=== PATIENT | male | born 1940 | race Caucasian/White ===

== ENCOUNTER → 2018-11-01 11:22 | Outpatient (CLI) | payer MEDICARE, OTHER, SELFPAY ==
[2018-11-01 11:37] LABS: Bacteria Urine None Seen; RBC Urine None Seen (0-5/HPF)
[2018-11-01 12:47] LABS: Hematocrit 46.5 % (41-53); Hemoglobin 16.1 g/dL (13.5-17.5); Mean Corpuscular HGB Conc 34.5 % (30-36); Mean Corpuscular Hemoglobin 33.4 PG (26-34); Mean Corpuscular Volume 96.7 fL (80-100); Platelet Count 171 X10^3/uL (150-400); Red Blood Cell Count 4.81 X10^6/uL (4.5-5.9); Red Cell Distribution Width 14.1 % (11.6-14.8); White Blood Cell Count 6.7 X10^3/uL (4.5-11.0)
[2018-11-01 12:50] LABS: Appearance Urine UA CLEAR; Bilirubin Urine UA NEGATIVE (NEGATIVE); Color Urine UA YELLOW; Glucose Urine UA NEGATIVE (Negative); Ketones Urine UA NEGATIVE (NEGATIVE); Leukocyte Esterase Urine UA NEGATIVE (NEGATIVE); Nitrite Urine UA NEGATIVE (Negative); Occult Blood Urine UA NEGATIVE (Negative); Protein Urine UA NEGATIVE (Negative); Specific Gravity Urine UA 1.025 (1.000-1.035); Urobilinogen Urine UA 0.2 E.U./dL (0.2)
[2018-11-01 12:57] LABS: Amorphous Sediment Urine 1+; Mucus Urine 1+ (Negative); Squamous Epithelial Cell Urine 0-1 /HPF (0-5/HPF); WBC Urine 0-1/HPF (0-5/HPF)
[2018-11-01 12:58] LABS: Culture Indicated Urine Cult Not Indicated; Sperm Urine FEW
[2018-11-01 13:00] LABS: Hemoglobin A1C% w Est Avg Glu 5.5 % (4.0-6.0)
[2018-11-01 13:14] LABS: BUN Creatinine Ratio 14.2 (6-22); Blood Urea Nitrogen 17 mg/dL (9-20); Calcium 9.2 mg/dL (8.4-10.2); Carbon Dioxide 25 mmol/L (22-32); Chloride 105 mmol/L (98-107); Estimated Glomerular Filt Rate 58.4 mL/min (>60); Glucose 107 mg/dL (80-110); HEMOLYSIS < 15 (0-50); Potassium 3.9 mmol/L (3.4-5.1); Sodium 139 mmol/L (137-145)
[2018-11-01 13:18] LABS: Transferrin 184 mg/dL (206-381)
== END ==
PROVIDERS: Family Provider Internal Medicine; PCP Internal Medicine; Visit Provider Orthopaedic Surgery
DX: E61.1 Iron deficiency (principal); N39.0 Urinary tract infection, site not specified; R73.9 Hyperglycemia, unspecified; Z01.818 Encounter for other preprocedural examination
CPT/HCPCS: 36415; 80048; 81001; 83036; 84466; 85027; 93005

== ENCOUNTER 2019-02-26 08:31 | Inpatient (IN) | payer MEDICARE, OTHER, SELFPAY ==
[2019-02-12 09:52] VITALS: BMI 27.2
[2019-02-26] VITALS (16 sets, daily range): BP systolic 111–164; BP diastolic 56–80; PULSE 57–93; RESP 10–18; TEMP 36.3–36.8; O2SAT 89–98; BMI 27.2
--- NOTE | 2019-02-26 06:00 | DI.RAD.S_ITS ---
PROCEDURE: XR KNEE RT 1TO2V INDICATIONS: Postop right total knee TECHNIQUE: 2 view(s) of the knee acquired. COMPARISON: [facility] [place], RADU, XR KNEE ARTHRITIC SERIES RT, 03/23/2018, 13:29. FINDINGS: Bones: Patient is status post knee joint arthroplasty. Hardware components are in expected positions. Visualized bony structures are intact. Soft tissues: Overlying postoperative changes are noted. IMPRESSION: Right knee prosthesis in anatomic alignment. Dictated by: Bong Ashton M.D. on 02/26/2019 at 17:39 Approved by: Bong Ashton M.D. on 02/26/2019 at 17:40
[2019-02-26] MEDS: PREGABALIN 75 MG CAPSULE PO (09:33)
[2019-02-26] MEDS: CELECOXIB 200 MG CAPSULE PO (09:33)
[2019-02-26] MEDS: ACETAMINOPHEN 325 MG TABLET 975 MG PO ×2 (09:33→20:36)
[2019-02-26] MEDS: LACTATED RINGERS 1,000 ML 42 ML IV (09:45)
--- NOTE | 2019-02-26 10:07 | PM.PREOP ---
Pre-operative Note Interval Note History & Physical reviewed/Exam performed by Physician: Yes Changes to H&P: No
--- NOTE | 2019-02-26 10:22 | P.OP_ITS ---
Operative Date/Time/Diagnoses Date of procedure: 02/26/19 Time of procedure: 12:20 Pre-op diagnosis: Right knee osteoarthritis Post-op diagnosis: same Procedure & Clinicians Procedure: Right total knee replacement Same procedure as scheduled: Yes Indications: The patient has had progressively worsening right knee pain with radiographic changes consistent with arthritis. Non-operative management has failed and the patient has requested total knee replacement. The risks, benefits and alternatives to surgery were discussed with the patient prior to proceeding. Risks discussed included, but were not limited to, failure to relieve pain, stiffness, infection, nerve damage, deep venous thrombosis, pulmonary embolism, stroke, coma, heart attack, permanent paralysis and , as well as the potential need for eventual revision of the prosthetic. Surgeon: Milad Orellana Glass Unloading Equipment Tender: Fadumo Jolly Click Yes if Unassisted: No Anesthesia Type: General, Spinal and Local Operative Notes Findings: Severe osteoarthritis, worst on the lateral side with significant hypoplasia of the lateral femoral condyle. Closure Type: primary Specimen(s): none sent Prosthetic devices, grafts, tissues, transplants, or devices: Implants used in this procedure were manufactured by the [employer] and included the BCS II Journey total knee replacement with a size 7 right cobalt chromium femoral component, a size 7 right non porous tibial base plate, a 9 mm cross-linked polyethylene tibial insert and a 38 mm oval Eduarda II patella. Applied: implant(s) Estimated Blood Loss (mL): 25 Blood products transfused: none Tourniquet time (min): 54 Procedure in detail: The patient was seen in the pre-operative area, where the patient identified the right knee as the operative site and this was marked with my initials. The patient received pre-operative antibiotics, and was taken to the operating room and placed on the operative table in the supine position. After satisfactory anesthesia, a silica mixer operator out was performed. The right leg was encircled with a tourniquet about the proximal thigh, and the leg was prepared from the toes to the tourniquet with ChloroPrep in the usual fashion and draped through sterile drapes. The leg was elevated and exsanguinated with Eschmark bandage and the tourniquet inflated to 250 mmHg pressure. The knee was approached through an approximately 18 cm incision centered over the patella and carried into the knee through a medial parapatellar arthrotomy. The anterior osteophytes and soft tissues were removed. The rotational landmarks of Ferriday's line and the transepicondylar axis were marked on the femur with electrocautery, and intramedullary guide holes for the femur and tibia were created. The distal femoral cut was made in 6 degrees of valgus using the intramedullary guide at the +2 cut setting due to the pre-existing flexion contracture. The proximal tibial cut was then made using the intramedullary guide, taking 9 mm of bone off the less involved side. The extension gap was checked and the rotation of the femoral component confirmed with the gap balancing system. The anterior, posterior and chamfer cuts were then made. The posterior osteophytes and soft tissues were then removed. The posterior capsule was injected with part of a mixture of 60 ml 0.25% Marcaine mixed with 20 ml Exparel and 4 mg of morphine for post-operative pain control. The remainder of this mixture was injected into the capsule and subcutaneous tissues during cement curing. The tibia was prepared with the rotation set by an extra medullary guide. Trial tibial and femoral components were then placed and the intercondylar notch cut through the femoral trial. Range of motion was 0-135 degrees, with good stability throughout the range. The patella was then cut to accommodate the patellar prosthetic. There was no need for a lateral release. The trials were then removed, and the femoral hole plugged with a bone plug. The bone was prepared with pulsatile lavage, and dried with a sponge. Cement was applied and the final prosthetics placed. Excess cement was removed during and after cement curing. After confirming there was no extruded cement posteriorly, the final tibial insert was placed. The knee was copiously irrigated and the tourniquet deflated. Hemostasis was obtained. The capsule was closed with interrupted # 2 polyester suture. The subcutaneous layer was closed with 3-0 Vicryl, and the skin with a running 3-0 V-Lock suture and SteriStrips. An Aquacel Ag dressing was applied and the patient was taken to recovery having tolerated the procedure well. Complications: none Post-operative Condition: stable Disposition: PACU Plan for aftercare: The patient will be maintained on a standard total knee replacement protocol with weight bearing as tolerated. The patient will receive aspirin and sequential compression devices for DVT prophylaxis. The patient will be discharged home when safe for the home environment.
[2019-02-26] MEDS: CEFAZOLIN 1 GM VIAL IV (10:45)
[2019-02-26] MEDS: TRANEXAMIC ACID 1,000 MG VIAL 1000 MG INJ ×2 (11:10→12:16)
--- NOTE | 2019-02-26 11:27 | SUR.OPER ---
Supine on padded OR bed. Pillow under head, arms secured on padded armboards <90 degree abduction. Safety belt across torso. Non-operative leg secured with tape over blanket over lower leg. Operative leg secured in DeMayo/Wiley positioner. Foam padded brace at thigh of operative leg.
[2019-02-26] MEDS: BUPIVACAINE 0.25% W/ EPI 30 ML VIAL 60 ML INJ (11:32)
[2019-02-26] MEDS: BUPIVACAINE LIPOSOME 266 MG/20 ML VIAL INJ (11:32)
[2019-02-26] MEDS: MORPHINE 4 MG/ML INJ INJ (11:33)
--- NOTE | 2019-02-26 13:08 | SUR.PHASEI ---
Report to Rachana
--- NOTE | 2019-02-26 13:11 | SUR.PHASEI ---
assumed care from Kodak Galo RN. Responds to voice, resp unlabored, denies pain, taking ice chips.
--- NOTE | 2019-02-26 13:24 | SUR.PHASEI ---
waiting for staff nurse to return call for report. Pt. verdugo.
--- NOTE | 2019-02-26 13:36 | SUR.PHASEI ---
1330 report called to floor, pt arouses easily. CMS wnl. denies pain/nausea
--- NOTE | 2019-02-26 13:50 | SUR.PHASEI ---
1343 To room 210, bed down and locked, call light within reach. VSS. clothing bag and cane to the room, present, report updated. No questions/concerns. Stable.
[2019-02-26] MEDS: LACTATED RINGERS 1,000 ML 125 ML IV (15:16)
--- NOTE | 2019-02-26 16:45 | PT.IIE ---
Current Diagnoses Unilateral primary osteoarthritis, right knee (02/26/19) Surgery Performed Operation Date: 02/26/19 10:45 Actual Procedures p Total Knee Arthroplasty(Right) - Milad Orellana MD Surgical History (Last Updated 02/12/19 @ 10:51 by Ketty Vera RN) H/O hernia repair (Acute ~2014) History of arthroplasty of left knee (Acute ~2011) History of arthroplasty of left shoulder (Acute 05/30/17) History of arthroplasty of right shoulder (Acute ~1999) History of bilateral carpal tunnel release (Acute) History of left-sided carotid endarterectomy (Acute 08/16/16) Hx of foot surgery (Acute) Hx of laminectomy (Acute ~1996) Hx of spinal fusion (Acute ~1963) Medical History (Last Updated 02/18/19 @ 14:44 by Ketty Vera RN) Arthritis (Acute) CKD (chronic kidney disease) (Acute) CVA (cerebral vascular accident) (Acute 08/10/16) Glaucoma (Acute) Herpes zoster (Acute) HLD (hyperlipidemia) (Acute) ONEIDA (hard of hearing) (Acute) HTN (hypertension) (Acute) Osteoarthritis (Acute) TIA (transient ischemic attack) (Acute ~12/2018) Physical Therapy Inpatient Evaluation/Re-Eval M1 PT/OT-IP Prior Functional Status Start: 02/26/19 14:03 Freq: NEEDED Status: Active Protocol: Document 02/26/19 16:27 AW (Rec: 02/26/19 16:45 AW [id number]) Medical Review Prior Functional Status Medical History Reviewed Yes Diet/Fluid Consistency Regular Communication Able to make needs known Mobility and Gait Pt used SPC to ambulate household distances and FWW up to 8-10 blocks at a time. Activities of Daily Living and IADL's Independent except helps to don socks Social History Household Members spouse Living Arrangements House Number of Floors (Floors) One Floor Number of Stairs To Enter/Railing? 2 COLT with no railing Home Environment High Toilet,Walk in Shower Home Equipment Front Wheel Walker,Four Wheel Walker,Straight Cane,Grab Bars In Shower Employment Status Retired M2 PT-IP Current Condition Start: 02/26/19 14:03 Freq: NEEDED Status: Active Protocol: Document 02/26/19 16:27 AW (Rec: 02/26/19 16:45 AW [id number]) Physical Therapy Current Condition Current Condition Evaluation Date 02/26/19 Treatment Diagnosis s/p R TKA, impaired balance, transfers, gait Weight Bearing Status Weight Bearing Status Weight Bear as Tolerated M3 PT-IP Subjective Start: 02/26/19 14:03 Freq: NEEDED Status: Active Protocol: Document 02/26/19 16:27 AW (Rec: 02/26/19 16:45 AW [id number]) Subjective Physical Therapy Visit Type Type Initial Evaluation Visit Start Time 15:45 Visit Stop Time 16:26 Total Visit Minutes 41 Number of INSPECTION MANAGER Visits 0 Physical Therapy Visit Comments Patient Comments Pt visiting with but willing to participate with PT Patient Goals Pt hopes to return home with spouse support at discharge Therapy Pain Assessment Pain When Pain Assessed During Mobility Pain Present Pain Present Denied Pain M4 PT-IP Mobility and Gait Start: 02/26/19 14:03 Freq: NEEDED Status: Active Protocol: Document 02/26/19 16:27 AW (Rec: 02/26/19 16:45 AW [id number]) PT-Bed Mobility Assessment Supine to Sit Supine to Sit Standby Assistance Sit to Supine Sit to Supine Standby Assistance Scooting Scooting to Edge of Bed Contact Guard Assistance PT-Transfer Assessment Sit to and From Stand Sit to and from Stand Minimal Assistance Equipment Transfer Assistive Device Gait Belt,Front Wheeled Walker Orthotic/Prosthetic Devices or Brace: No Transfers Transfer Destination Bed Transfer Technique pt ambulated with FWW Transfer Ability Level of Assist Minimal Assistance Comments Mobility Comments Pt requiring min assist and verbal cues for safe use of FWW to complete sit <> stand transfer. Gait Assessment Gait Gait Assistance Required: Contact Guard Assist Distance (Feet) 25 Able to Maintain Weight Bearing Status Yes During Gait Assistive Devices Assistive Device Gait Belt,Front Wheeled Walker Orthotic/Prosthetic Devices or Brace: No Gait Deviations General Gait Pattern Antalgic,Decreased Stride Length,Decreased Feet Clearance,Flexed Trunk Factors Limiting Gait Function Factors Limiting Gait Function Decreased Activity Tolerance, Decreased Strength,Poor Balance,Poor Safety Awareness Comments Gait Comments Pt required CGA for ambulation with FWW and frequent verbal cues to maintain safe distance from trunk to walker frame. Pt tends to lean far forward with arms outstretched. Pt educated on proper positioning for maximum safety and stability. PT-Balance Assessment Sitting Balance and Reactions Static Sitting Balance Ability Good Dynamic Sitting Balance Ability Good Standing Balance and Reactions Static Standing Balance Ability Fair Dynamic Standing Balance Ability Fair Device Used FWW Comments Other Balance Tests/Deviations/Treatment On two attempts to stand, pt : kept weight posteriorly with tendency for retropulsion. Once moving, pt was unsteady on feet, requiring CGA but was able to distribute/shift weight more appropriately. M5 PT-IP Objective Assessments Start: 02/26/19 14:03 Freq: NEEDED Status: Active Protocol: Document 02/26/19 16:27 AW (Rec: 02/26/19 16:45 AW [id number]) Orientation Orientation/Cognition Level of Alertness Confusional State Orientation Name,Place,Situation Language Function Ability Hard of Hearing Safety Awareness Decreased Safety Awareness Memory Description Short Term Impaired Comments Pt disoriented to month and year. Gross Range of Motion Upper Extremity ROM Assessment Within Functional Limits Impairments History of bilateral TSA Lower Extremity ROM Assessment Right Impaired Strength Upper Extremity Strength Assessment Within Functional Limits Lower Extremity Strength Assessment Right Impaired Coordination Assessment Gross Coordination Gross Coordination WNL Sensation Assessment Sensation Gross Sensation WNL Muscle Tone Muscle Tone WNL Yes M6 PT-IP Treatment Start: 02/26/19 14:03 Freq: NEEDED Status: Active Protocol: Document 02/26/19 16:27 AW (Rec: 02/26/19 16:45 AW [id number]) Physical Therapy Treatment Exercises Exercises Ankle Pumps,Quad Sets,Heel Slides,Passive Knee Extension Hang Education Education Provided Precautions,Weight Bearing Status,Post-Op Packet,Safety M7 PT-IP Assessment and Plan Start: 02/26/19 14:03 Freq: NEEDED Status: Active Protocol: Document 02/26/19 16:27 AW (Rec: 02/26/19 16:45 AW [id number]) PT Summary Assessment and Plan Potential Rehabilitation Potential Good Status of Condition at Evaluation Evolving Summary Impairments ROM,Strength,Balance,Cognition ,Bed Mobility,Transfers,Gait, Activity Tolerance Assessment Summary Pt is an 78 yo man with history of L TKA, seen for PT eval on POD0 following R TKA. After L TKA, pt discharged to SNF rehab for what he and his describe as a 10-day stay . PLOF: Pt was modified independent for all mobility, using a SPC for household distances and FWW for community distances up to 8-10 blocks. CLOF: Pt required min assist for transfers, frequent orientation to task, and CGA for ambulation with FWW due to unsteadiness and pt report of weakness. At this time, in the context of the patient's level of debility from prior level of function, he would likely benefit from SNF rehab before anticipated safe return to home. Will continue to assess Goals Bed Mobility Goal Independent Transfer Goal Standby Assistance Gait Goal Standby Assistance Gait Distance 150 feet Other Goals up/down 2 stairs with least restrictive assistive device/ no railing. Days to Meet Goals 10 Frequency of Treatment Frequency Of Treatment Twice a Day Treatment Plan Physical Therapy Treatment Plan Bed Mobility Training,Transfer Training,Gait Training, Therapeutic Exercise,Balance Retraining,Post Op Education, Discharge Planning,Hot or Cold Pack,Neuromuscular Re-ed, Coordination Retraining,Manual Therapy Other Recommendations and Next Treatment Progress gait distance, trial Focus stairs, re-assess for discharge disposition Recommendations To Nursing Amount of Assist Needed 1 Person Assist Discharge Recommendations PT Discharge Recommendations SNF Rehab Other Discharge Recommendations SNF rehab vs home with assist and outpatient PT Equipment Needed for Home Before shower chair Discharge
[2019-02-26] MEDS: ROSUVASTATIN 10 MG TABLET 40 MG PO (20:36)
[2019-02-26] MEDS: DOCUSATE 100 MG CAPSULE PO (20:36)
[2019-02-26] MEDS: LOSARTAN 50 MG TABLET 100 MG PO (20:36)
[2019-02-26] MEDS: PANTOPRAZOLE 20 MG TABLET PO (20:36)
[2019-02-26] MEDS: LATANOPROST 0.005% OPHTH 2.5 ML 1 DROPS EYE-BOTH (20:37)
[2019-02-26] MEDS: ONDANSETRON 4 MG/2 ML INJ IV (21:16)
[2019-02-27] VITALS (9 sets, daily range): BP systolic 118–147; BP diastolic 65–75; PULSE 68–80; RESP 14–20; TEMP 36.6–37.3; O2SAT 88–99
--- NOTE | 2019-02-27 02:53 | PC.NURSE ---
Supervisor Color Making Note: 0015: Pt resting in bed. Vital signs stable. IV in place in lt forearm with LR infusing at 125cc/hr. Dressing to rt knee cdi with evan wrap intact over dressing. Pt denies pain at this time.
[2019-02-27] MEDS: LACTATED RINGERS 1,000 ML 125 ML IV (03:39)
[2019-02-27 06:48] LABS: Hemoglobin 12.3 g/dL (13.5-17.5)
--- NOTE | 2019-02-27 07:41 | PM.PNPO.1 ---
Subjective Subjective Date Patient Seen: 02/27/19 Time Patient Seen: 07:41 Interval history: Hospital day 2, postop day 1 following right total knee arthroplasty by Dr. Orellana. Patient states he did not get much sleep last night. Having some knee pain but only using Tylenol. He needed further assist with physical therapy yesterday. Also needed a lot of cuing. PT was suggesting possible SNF prior to going home. In talking with the patient this morning he was asking if his surgery was going to be later today. I informed him that he had surgery yesterday. Exam Vital Signs (past 8 hours): - 02/27/19 03:19 Temperature 98.5 F Pulse Rate 69 Respiratory Rate 17 Blood Pressure 129/75 Pulse Oximetry 92 Oxygen Delivery Method Room Air Oxygen Flow Rate 0 Narrative Exam Narrative: Alert, responsive in no acute distress lying in bed. Legs. Bob wrap an Aquacel dressing to right knee is dry without drainage or inflammation. Mild swelling. No calf tenderness. Pulses symmetrical. Patient able to move his knee minimally. Objective Labs Result Diagrams: 02/27/19 06:16 Labs: Laboratory Results - last 24 hr 02/27/19 06:16 Hgb 12.3 L Hct 37.0 L Assessment & Plan Post-op Postoperative Procedures: Procedures Operation Date: 02/26/19 10:45 Actual Procedures Side Surgeon p Total Knee Arthroplasty Right Milad Orellana MD Plan: Will have patient stay today to work with PT more and make sure he is stable for discharge home rather than needing to go to SNF. Will re-evaluate tomorrow morning for possible discharge home.
[2019-02-27] MEDS: TIMOLOL 0.25% OPHTH 1 DROPS EYE-BOTH (08:44)
[2019-02-27] MEDS: ASPIRIN EC 81 MG TABLET PO (08:45)
[2019-02-27] MEDS: ACETAMINOPHEN 325 MG TABLET 975 MG PO ×3 (08:45→20:20)
[2019-02-27] MEDS: CLOPIDOGREL 75 MG TABLET PO (08:45)
[2019-02-27] MEDS: DOCUSATE 100 MG CAPSULE PO ×2 (08:45→20:21)
[2019-02-27] MEDS: MELOXICAM 7.5 MG TABLET 15 MG PO (09:00)
--- NOTE | 2019-02-27 10:25 | PT.IPTN ---
Current Diagnoses Unilateral primary osteoarthritis, right knee (02/26/19) Surgery Performed Operation Date: 02/26/19 10:45 Actual Procedures p Total Knee Arthroplasty(Right) - Milad Orellana MD Physical Therapy Treatment Note M2 PT-IP Current Condition Start: 02/26/19 14:03 Freq: NEEDED Status: Active Protocol: Document 02/26/19 16:27 AW (Rec: 02/26/19 16:45 AW [id number]) Physical Therapy Current Condition Current Condition Evaluation Date 02/26/19 Treatment Diagnosis s/p R TKA, impaired balance, transfers, gait Weight Bearing Status Weight Bearing Status Weight Bear as Tolerated M3 PT-IP Subjective Start: 02/26/19 14:03 Freq: NEEDED Status: Active Protocol: Document 02/27/19 10:25 GGD (Rec: 02/27/19 12:12 GGD [id number]) Subjective Physical Therapy Visit Type Type Treatment Note Visit Start Time 10:00 Visit Stop Time 10:25 Total Visit Minutes 25 Number of DOCK BUILDER Visits 1 Physical Therapy Visit Comments Patient Comments Pt willing to work with therapy. Therapy Pain Assessment Pain When Pain Assessed During Mobility Pain Present Pain Present Denied Pain M4 PT-IP Mobility and Gait Start: 02/26/19 14:03 Freq: NEEDED Status: Active Protocol: Document 02/27/19 10:25 GGD (Rec: 02/27/19 12:12 GGD [id number]) PT-Bed Mobility Assessment Supine to Sit Supine to Sit Standby Assistance Sit to Supine Sit to Supine Standby Assistance Scooting Scooting to Edge of Bed Contact Guard Assistance PT-Transfer Assessment Sit to and From Stand Sit to and from Stand Minimal Assistance Equipment Transfer Assistive Device Gait Belt,Front Wheeled Walker Orthotic/Prosthetic Devices or Brace: No Transfers Transfer Destination Bed Transfer Ability Level of Assist Minimal Assistance Comments Mobility Comments PT had LOB backwards with sit to stand. Gait Assessment Gait Gait Assistance Required: Minimum Assistance Distance (Feet) 25 Able to Maintain Weight Bearing Status Yes During Gait Assistive Devices Assistive Device Gait Belt,Front Wheeled Walker Orthotic/Prosthetic Devices or Brace: No Gait Deviations General Gait Pattern Antalgic,Decreased Stride Length,Decreased Feet Clearance,Flexed Trunk,Lateral Trunk Lean Factors Limiting Gait Function Factors Limiting Gait Function Decreased Activity Tolerance, Decreased Strength,Difficulty Following Directions,Limited Range of Motion,Pain,Poor Balance,Poor Safety Awareness Comments Gait Comments Pt needed min A for gait and FWW management. He had LOB and unsteadiness. M5 PT-IP Objective Assessments Start: 02/26/19 14:03 Freq: NEEDED Status: Active Protocol: Document 02/26/19 16:27 AW (Rec: 02/26/19 16:45 AW [id number]) Orientation Orientation/Cognition Level of Alertness Confusional State Orientation Name,Place,Situation Language Function Ability Hard of Hearing Safety Awareness Decreased Safety Awareness Memory Description Short Term Impaired Comments Pt disoriented to month and year. Gross Range of Motion Upper Extremity ROM Assessment Within Functional Limits Impairments History of bilateral TSA Lower Extremity ROM Assessment Right Impaired Strength Upper Extremity Strength Assessment Within Functional Limits Lower Extremity Strength Assessment Right Impaired Coordination Assessment Gross Coordination Gross Coordination WNL Sensation Assessment Sensation Gross Sensation WNL Muscle Tone Muscle Tone WNL Yes M6 PT-IP Treatment Start: 02/26/19 14:03 Freq: NEEDED Status: Active Protocol: Document 02/27/19 10:25 GGD (Rec: 02/27/19 12:12 GGD [id number]) Physical Therapy Treatment Exercises Exercises Ankle Pumps,Quad Sets,Heel Slides,Short Arc Quads,Seated Knee Flexion/Extension M7 PT-IP Assessment and Plan Start: 02/26/19 14:03 Freq: NEEDED Status: Active Protocol: Document 02/27/19 10:25 GGD (Rec: 02/27/19 12:12 GGD [id number]) PT Summary Assessment and Plan Summary Assessment Summary Pt progressing with bed mobility. He had LOB with sit to stand. He was unsteady with gait need min A for LOB. He is a high fall risk. He would benefit from SNF to improve gait and balance before return home. Frequency of Treatment Frequency Of Treatment Twice a Day Treatment Plan Other Recommendations and Next Treatment Progress gait distance, trial Focus stairs, re-assess for discharge disposition Recommendations To Nursing Amount of Assist Needed 1 Person Assist Discharge Recommendations PT Discharge Recommendations SNF Rehab
[2019-02-27] MEDS: OXYCODONE IR 5 MG TABLET PO ×2 (11:08→20:22)
--- NOTE | 2019-02-27 11:10 | CM.DANOTE ---
Addendum entered by MILY Lozano 02/27/19 14:09: ADD: Return call from [facility] stating they can accept the pt at discharge. BF Original Note: Patient is an 78 year old male who was admitted on 02/26/19 for RTKA. Pt has [employer] and [employer] [place] for insurance and his PCP is Dr. Vipul Bonilla. EMR was reviewed. Per Ortho MD, pt tolerated procedure well and waiting for further PT. Per PT, currently recommending SNF prior to safe return home. SW met bedside with pt and spouse and explained role and spouse confirms that pt seems to have some increased confusion today. Pt resides at home in [facility] with his spouse and they have local supportive family. Pt has a hx of SNF after previous knee surgery 8 years ago and they went to [facility] as they lived near [place]. Pt and spouse both agree that SNF needed at this time before safe return home. SW provided the SNF Choice List to review and spouse preference is either [facility] or [facility] due to location to their home. SW discussed Medicare coverage and 3 night qualifying stay and spouse appreciative of the information. SW called [facility] and [facility] admissions with new referral and faxed clinicals to both to review. Spouse states she plans to likely tour both facilities this evening to determine if she has a preference. PASRR completed in anticipation of SNF. Plan: SW to follow closely for [facility] and [facility] review to determine if they can accept at d/c and if spouse has a preference between the two facilities. MILY Lozano Discharge Planning/Care Management CM Discharge Assessment Start: 02/27/19 11:07 Freq: Status: Active Protocol: Document 02/27/19 11:08 (Rec: 02/27/19 11:10 [id number]) Discharge Planning Assessment Assigned Worship Pastor MILY Obando DPOA/Assigned Designee Name spouse Roopa Contact Information [phone] Advance Directives? No: Declines further information History Provided By Patient,Family Member,Medical Record Has Patient been admitted in last 30 No days? Prior Living Arrangements House Household Members spouse Independent with ADL's Yes: mostly Is patient alert and oriented? No: confused today Needs Assistance With Managing Medications,Home Chores / Shopping Caregiver for Another No Patient/Family Preference Snf Facility Barriers to Discharge No Discharge Plan Snf Facility Transportation Arrangement Likely SNF will provide transport Referrals Initiated Snf If patient plan is SNF: Has PASSR been Yes completed? Medicare Choice List Provided Yes SNF/HH Preference [facility] Has Agency SNF been contacted Yes Whiteboard Updated in Patient Room with Yes name and ext. # of Worship Pastor Review Status In Process Please Provide Date Initial DC 02/27/19 Assessment Was Performed Next Review Type Continued Stay Review Pre-Anesthesia Assessment Start: 02/12/19 09:52 Freq: Status: Complete Protocol: Document 02/12/19 09:52 CAB (Rec: 02/12/19 10:58 CAB [id number]) Pre-Anesthesia Assessment Patient Also Known As (KRYSTA Palomo Patient Information Reviewed Via Phone Assessment Assessment Completed With Spouse Comment Patient gave verbal approval to speak with spouse for PAC Diagnostic Results BMP/CMP,CBC Comment EKG @ [facility] 11/01/18 Outside labs 02/01/19 scanned to record Primary Care Provider Robin Bonilla Seen Specialist in Last 12 Months Yes Specialist Seen Orthopedist Comment PCP pre-op clearance 02/11/19 scanned to record Primary Language Polish Ammunition Storage Superintendent Required No Height 167.64 cm Weight 76.657 kg Body Mass Index (BMI) 27.2 Hearing Ability Hard of Hearing Visual Assist Glasses Dentition Type Teeth, Natural Present Barriers to Learning Auditory Other Aids No Hx Anesthesia Reactions No: Remote hx of PONV w/back surgery in 60's Hx Family Anesthesia Reaction No Hx Malignant Hyperthermia No Hx Blood Transfusions Yes: 1970 r/t back surgery Hx Blood Transfusion Reaction No Anesthesia Review Requested No alcohol intake current alcohol intake frequency holidays/special occasions only Smoking Status Never smoker Substance Use Type does not use Pain Present Pain Reported Musculoskeletal Symptoms Abnormal Gait,Difficulty Walking,Joint Pain History of Falling (Recent or History of Yes ) Patient is completely paralyzed or No completely immobile Prosthesis or Orthotic Device Cane Mental Status Oriented to own ability Is patient on oxygen? No Does patient have DOLL/SOB No Hx Sleep Apnea No Currently Taking a Beta Dameon No Can You Climb a Flight of Stairs Without Yes SOB Hx Chest Pain No Hx SOB No Hx Syncope or Dizziness No Anti-Coagulant Therapy Yes: ASA, Plavix-advised to hold 7 days per PCP Has a Cake Former No Cardiac Testing No Hx Pacemaker/ICD No Pacemaker Rep Required? No Cardiac Clearance Received Not Applicable Diet Type At Home Regular dysphagia No Bladder Pattern Nocturia Urinary Catheter Present No Hx Urinary Self Catheterization No Diabetes No: Pre-diabetes by lab HgbA1C 6.4 Date 02/01/19 Comment A1c up from 5.5 on 11/01/18 Hx Drug Resistant Organism No Presence of External or Internal Medical Yes: Bilat shoulder, left knee Devices prosthesis, lt endarterectomy /shunt Have you traveled outside the [facility] in the last 30 days? Marital Status Lives With spouse Prior Living Arrangements House Number of Floors (Floors) One Floor Support System Spouse Does the Patient Have Assistance After Yes Surgery Patient Discharge Plan Description Return Home Comment Pt not advised on length of stay per surgeon Feels Safe in Current Environment Yes Been Physically Hurt or Threatened By a No Person in Current Environment Do you have thoughts of harming yourself None or others? Are you currently considering suicide? No Do you have a plan to hurt yourself or No Plan others? Do You Have Any Spiritual Beliefs That No May Affect Your HC Choices? Do You Have Any Cultural Practices That No May Affect Your HC Choices? Comment Catholic Who Can We Speak to About Patient's Care Family, friends Identifying Code for Release of Patient Declines to issue Information Health Care Proxy/Next of Kin Rula () Health Care Proxy Emergency Contact Name Rula () Emergency Contact Advance Directives? No: Declines further information PAC Instructions Durable medical equipment, Medications to take/avoid, Nasal antibiotic,No ETOH/ petroleum product on skin DOS, NPO,Post-op transportation,Pre -surgical wash,Sturdy shoes/ comfortable clothes,Do not bring valuables and remove jewelry
--- NOTE | 2019-02-27 15:20 | PT.IPTN ---
Current Diagnoses Unilateral primary osteoarthritis, right knee (02/26/19) Surgery Performed Operation Date: 02/26/19 10:45 Actual Procedures p Total Knee Arthroplasty(Right) - Milad Orellana MD Physical Therapy Treatment Note M2 PT-IP Current Condition Start: 02/26/19 14:03 Freq: NEEDED Status: Active Protocol: Document 02/26/19 16:27 AW (Rec: 02/26/19 16:45 AW [id number]) Physical Therapy Current Condition Current Condition Evaluation Date 02/26/19 Treatment Diagnosis s/p R TKA, impaired balance, transfers, gait Weight Bearing Status Weight Bearing Status Weight Bear as Tolerated M3 PT-IP Subjective Start: 02/26/19 14:03 Freq: NEEDED Status: Active Protocol: Document 02/27/19 15:20 GGD (Rec: 02/27/19 16:14 GGD [id number]) Subjective Physical Therapy Visit Type Type Treatment Note Visit Start Time 14:50 Visit Stop Time 15:20 Total Visit Minutes 30 Number of NUMERICAL CONTROL LATHE OPERATOR Visits 2 Physical Therapy Visit Comments Patient Comments Pt willing to work with therpay. Therapy Pain Assessment Pain When Pain Assessed During Mobility Pain Present Pain Present Denied Pain M4 PT-IP Mobility and Gait Start: 02/26/19 14:03 Freq: NEEDED Status: Active Protocol: Document 02/27/19 15:20 GGD (Rec: 02/27/19 16:14 GGD [id number]) PT-Bed Mobility Assessment Supine to Sit Supine to Sit Standby Assistance Sit to Supine Sit to Supine Standby Assistance Scooting Scooting to Edge of Bed Contact Guard Assistance PT-Transfer Assessment Sit to and From Stand Sit to and from Stand Minimal Assistance Equipment Transfer Assistive Device Gait Belt,Front Wheeled Walker Orthotic/Prosthetic Devices or Brace: No Transfers Transfer Destination Bed Transfer Technique pt ambulated with FWW Transfer Ability Level of Assist Minimal Assistance Gait Assessment Gait Gait Assistance Required: Minimum Assistance,Moderate Assistance,1 Person Assist Distance (Feet) 5 Able to Maintain Weight Bearing Status Yes During Gait Assistive Devices Assistive Device Gait Belt,Front Wheeled Walker Orthotic/Prosthetic Devices or Brace: No Gait Deviations General Gait Pattern Antalgic,Decreased Stride Length,Decreased Feet Clearance,Flexed Trunk,Lateral Trunk Lean Factors Limiting Gait Function Factors Limiting Gait Function Decreased Activity Tolerance, Decreased Strength,Difficulty Following Directions,Limited Range of Motion,Pain,Poor Balance,Poor Safety Awareness Comments Gait Comments Pt had increase in pain with weight bearing. M5 PT-IP Objective Assessments Start: 02/26/19 14:03 Freq: NEEDED Status: Active Protocol: Document 02/26/19 16:27 AW (Rec: 02/26/19 16:45 AW [id number]) Orientation Orientation/Cognition Level of Alertness Confusional State Orientation Name,Place,Situation Language Function Ability Hard of Hearing Safety Awareness Decreased Safety Awareness Memory Description Short Term Impaired Comments Pt disoriented to month and year. Gross Range of Motion Upper Extremity ROM Assessment Within Functional Limits Impairments History of bilateral TSA Lower Extremity ROM Assessment Right Impaired Strength Upper Extremity Strength Assessment Within Functional Limits Lower Extremity Strength Assessment Right Impaired Coordination Assessment Gross Coordination Gross Coordination WNL Sensation Assessment Sensation Gross Sensation WNL Muscle Tone Muscle Tone WNL Yes M6 PT-IP Treatment Start: 02/26/19 14:03 Freq: NEEDED Status: Active Protocol: Document 02/27/19 15:20 GGD (Rec: 02/27/19 16:14 GGD [id number]) Physical Therapy Treatment Exercises Exercises Ankle Pumps,Quad Sets,Heel Slides,Short Arc Quads,Seated Knee Flexion/Extension M7 PT-IP Assessment and Plan Start: 02/26/19 14:03 Freq: NEEDED Status: Active Protocol: Document 02/27/19 15:20 GGD (Rec: 02/27/19 16:14 GGD [id number]) PT Summary Assessment and Plan Summary Assessment Summary Pt unalbe to progress gait, due to c/o pain. He had posterior lean in standing. He needed increase in assistance with gait due to increase in pain and LOB. Frequency of Treatment Frequency Of Treatment Twice a Day Treatment Plan Physical Therapy Treatment Plan Bed Mobility Training,Transfer Training,Gait Training, Therapeutic Exercise,Balance Retraining,Post Op Education, Discharge Planning,Hot or Cold Pack,Neuromuscular Re-ed, Coordination Retraining,Manual Therapy Other Recommendations and Next Treatment Progress gait distance, trial Focus stairs, re-assess for discharge disposition Recommendations To Nursing Amount of Assist Needed 1 Person Assist,2 Person Assist Discharge Recommendations PT Discharge Recommendations SNF Rehab
[2019-02-27] MEDS: LOSARTAN 50 MG TABLET 100 MG PO (20:20)
[2019-02-27] MEDS: PANTOPRAZOLE 20 MG TABLET PO (20:21)
[2019-02-27] MEDS: ROSUVASTATIN 10 MG TABLET 40 MG PO (20:21)
[2019-02-27] MEDS: LATANOPROST 0.005% OPHTH 2.5 ML 1 DROPS EYE-BOTH (20:22)
[2019-02-28] VITALS (9 sets, daily range): BP systolic 153–178; BP diastolic 77–98; PULSE 71–80; RESP 19–22; TEMP 36.3–37.3; O2SAT 93–98
[2019-02-28] MEDS: OXYCODONE IR 5 MG TABLET PO ×3 (01:05→12:45)
--- NOTE | 2019-02-28 01:28 | PC.NURSE ---
Addendum entered by Hellen Stoll R.N. 02/28/19 04:19: Found in bed undressed except for pull up and legs toward side of bed. When asked if he needed something states I was trying to get up. Pull up soaked but assisted to use urinal and voided an additional 100cc urine. Much facial grimacing when moving right leg in bed and states pain is 5/10 so medicated with Oxycodone. Original Note: Patient oriented to self, birthdate and that he is in the hospital but otherwise not able to answer orientation questions. Believes he is in the hospital for a CVA. Responses are delayed but clear. Is ALUTIIQ and does not have hearing aid. Breath sounds diminished at bases. Oxygen at 2L/min with sat of 93%. HRR with BP of 155/77 but has been trending higher. Denies nausea. BT hypoactive. Has been voiding per urinal but noted strong urine odor during exam and found bedding to be damp; unsure if he was incontinent or if urinal was spilled. Is able to move self in bed. Out of bed with walker and 1-2 assist. Seems to bear weight well but takes small shuffling steps. States pain is currently 5/10 so medicated with Oxycodone as noted to be grimacing/wincing with movements. Ice pack applied to knee. Aquacel dressing is CDI. Wearing bilateral SCD's. CMS intact. Fall risk score is high and bed alarm is activated.
--- NOTE | 2019-02-28 06:54 | P.PN_ITS ---
Subjective Subjective Date Patient Seen: 02/28/19 Time Patient Seen: 06:54 Interval history: The patient is pleasant and cooperative but confused. He is disoriented as to place and time. Exam Vital Signs (past 8 hours): - 02/28/19 00:50 02/28/19 04:31 Temperature 99.1 F 98.4 F Pulse Rate 77 80 Respiratory Rate 19 19 Blood Pressure 155/77 H 178/88 H Pulse Oximetry 93 95 Oxygen Delivery Method Nasal Cannula Oxygen Flow Rate 2 Narrative Exam Narrative: Facies are symmetric. He is moving all 4 extremities. Right knee wound is dressed with no drainage on the bandage. Calf is soft. Light touch and motion are intact in the right lower extremity. Objective Labs Result Diagrams: 02/27/19 06:16 Assessment & Plan Post-op Postoperative Procedures: Procedures Operation Date: 02/26/19 10:45 Actual Procedures Side Surgeon p Total Knee Arthroplasty Right Milad Orellana MD Postoperative day: 2 Postoperative status: anemia and other (Postoperative delirium) Postoperative status narrative: The patient is 2 days status post right total knee replacement. He has a mild post hemorrhagic anemia as anticipated. He has significant confusion and delirium. This has limited his progress with physical therapy. Postoperative plan: routine post-op care, ambulate, discharge (Will arrange for discharge to correction likely tomorrow.) and other (Medications have been reviewed, the higher dose of oxycodone has been discontinued due to the delirium.) Postoperative plan narrative: We will continue supportive care. We will continue attempts at physical therapy. I have canceled the higher dose of oxycodone due to his delirium. We will arrange for correction transfer nya dylan tomorrow. Time Spent With Patient Time with patient: less than 15 minutes
[2019-02-28] MEDS: CLOPIDOGREL 75 MG TABLET PO (08:42)
[2019-02-28] MEDS: ASPIRIN EC 81 MG TABLET PO (08:42)
[2019-02-28] MEDS: TIMOLOL 0.25% OPHTH 1 DROPS EYE-BOTH (08:42)
[2019-02-28] MEDS: DOCUSATE 100 MG CAPSULE PO ×2 (08:42→20:51)
[2019-02-28] MEDS: ACETAMINOPHEN 325 MG TABLET 975 MG PO ×3 (08:42→20:51)
[2019-02-28] MEDS: SODIUM CHLORIDE 0.9% FLUSH 10 ML IV ×2 (08:43→20:53)
--- NOTE | 2019-02-28 10:25 | PT.IPTN ---
Current Diagnoses Unilateral primary osteoarthritis, right knee (02/26/19) Surgery Performed Operation Date: 02/26/19 10:45 Actual Procedures p Total Knee Arthroplasty(Right) - Milad Orellana MD Physical Therapy Treatment Note M2 PT-IP Current Condition Start: 02/26/19 14:03 Freq: NEEDED Status: Active Protocol: Document 02/26/19 16:27 AW (Rec: 02/26/19 16:45 AW [id number]) Physical Therapy Current Condition Current Condition Evaluation Date 02/26/19 Treatment Diagnosis s/p R TKA, impaired balance, transfers, gait Weight Bearing Status Weight Bearing Status Weight Bear as Tolerated M3 PT-IP Subjective Start: 02/26/19 14:03 Freq: NEEDED Status: Active Protocol: Document 02/28/19 10:25 GGD (Rec: 02/28/19 13:13 GGD [email or web address]) Subjective Physical Therapy Visit Type Type Treatment Note Visit Start Time 10:25 Visit Stop Time 10:48 Total Visit Minutes 23 Number of PSYCHIATRIC TECH Visits 3 Physical Therapy Visit Comments Patient Comments Pt states he feels better than yesterday. Therapy Pain Assessment Location Right Knee Scale Used unable to rate M4 PT-IP Mobility and Gait Start: 02/26/19 14:03 Freq: NEEDED Status: Active Protocol: Document 02/28/19 10:25 GGD (Rec: 02/28/19 13:13 GGD [email or web address]) PT-Transfer Assessment Sit to and From Stand Sit to and from Stand Moderate Assistance Equipment Transfer Assistive Device Gait Belt,Front Wheeled Walker Orthotic/Prosthetic Devices or Brace: No Transfers Transfer Destination Chair Transfer Ability Level of Assist Minimal Assistance Gait Assessment Gait Gait Assistance Required: Minimum Assistance,1 Person Assist Distance (Feet) 6 Able to Maintain Weight Bearing Status Yes During Gait Assistive Devices Assistive Device Gait Belt,Front Wheeled Walker Orthotic/Prosthetic Devices or Brace: No Gait Deviations General Gait Pattern Antalgic,Decreased Stride Length,Decreased Feet Clearance,Flexed Trunk,Lateral Trunk Lean Factors Limiting Gait Function Factors Limiting Gait Function Decreased Activity Tolerance, Decreased Strength,Difficulty Following Directions,Limited Range of Motion,Pain,Poor Balance,Poor Safety Awareness Comments Gait Comments Pt had increase in pain with weight bearing and needed mod cues. M5 PT-IP Objective Assessments Start: 02/26/19 14:03 Freq: NEEDED Status: Active Protocol: Document 02/26/19 16:27 AW (Rec: 02/26/19 16:45 AW [id number]) Orientation Orientation/Cognition Level of Alertness Confusional State Orientation Name,Place,Situation Language Function Ability Hard of Hearing Safety Awareness Decreased Safety Awareness Memory Description Short Term Impaired Comments Pt disoriented to month and year. Gross Range of Motion Upper Extremity ROM Assessment Within Functional Limits Impairments History of bilateral TSA Lower Extremity ROM Assessment Right Impaired Strength Upper Extremity Strength Assessment Within Functional Limits Lower Extremity Strength Assessment Right Impaired Coordination Assessment Gross Coordination Gross Coordination WNL Sensation Assessment Sensation Gross Sensation WNL Muscle Tone Muscle Tone WNL Yes M6 PT-IP Treatment Start: 02/26/19 14:03 Freq: NEEDED Status: Active Protocol: Document 02/28/19 10:25 GGD (Rec: 02/28/19 13:13 GGD [email or web address]) Physical Therapy Treatment Exercises Exercises Ankle Pumps,Quad Sets,Heel Slides,Seated Knee Flexion/ Extension M7 PT-IP Assessment and Plan Start: 02/26/19 14:03 Freq: NEEDED Status: Active Protocol: Document 02/28/19 10:25 GGD (Rec: 02/28/19 13:13 GGD [email or web address]) PT Summary Assessment and Plan Summary Assessment Summary Pt needed increase in assist and cues. He had increase in C /O pain with any activity. He need multiple cues for all mobility. Pt will need SNF to improve functional mobility. Frequency of Treatment Frequency Of Treatment Twice a Day Treatment Plan Physical Therapy Treatment Plan Bed Mobility Training,Transfer Training,Gait Training, Therapeutic Exercise,Balance Retraining,Post Op Education, Discharge Planning,Hot or Cold Pack,Neuromuscular Re-ed, Coordination Retraining,Manual Therapy Recommendations To Nursing Amount of Assist Needed 1 Person Assist,2 Person Assist Discharge Recommendations PT Discharge Recommendations SNF Rehab
[2019-02-28] MEDS: MELOXICAM 7.5 MG TABLET 15 MG PO (12:50)
--- NOTE | 2019-02-28 15:27 | PC.NURSE ---
1430 Pt remains confused, oriented to name only. Pt incontinent of urine, wearing a brief. alarms on, sr x 4 up.
--- NOTE | 2019-02-28 16:16 | CM.DPNOTE ---
DCP Cont: Spoke w/Narda at [facility], pt is accepted for admission to their facility Monday if medically stable. Updated pt's spouse this afternoon. JW
--- NOTE | 2019-02-28 16:38 | PC.NURSE ---
Yessenia shift note: Patient awake, alert, and calm. Confusion noted, Oriented to self, location, however states he will have a knee replacement tomorrow. Re oriented to situation, told him he had the surgery two days ago and showed him his knee dressing and such, however states he had to re schedule it for tomorrow. High risk precautions maintained, bed alarm active, and call light within reach. Continue on 2L O2 at 94% NC.
--- NOTE | 2019-02-28 16:39 | PT-IP ANOTE ---
Pt refused therapy this afternoon. PT provided education on risks and benefits of mobilizing, but pt insisted on refusal. Will check in with pt in the morning of 03/01/19.
[2019-02-28 20:49] LABS: Bacteria Urine None Seen
[2019-02-28] MEDS: ROSUVASTATIN 10 MG TABLET 40 MG PO (20:49)
[2019-02-28 20:50] LABS: Appearance Urine UA CLEAR; Bilirubin Urine UA NEGATIVE (NEGATIVE); Color Urine UA YELLOW; Glucose Urine UA TRACE g/dL (Negative); Ketones Urine UA NEGATIVE (NEGATIVE); Leukocyte Esterase Urine UA NEGATIVE (NEGATIVE); Nitrite Urine UA NEGATIVE (Negative); Occult Blood Urine UA TRACE-INTACT (Negative); Protein Urine UA 1+ (Negative); pH Urine UA 6.5 (4.5-8.0)
[2019-02-28] MEDS: LOSARTAN 50 MG TABLET 100 MG PO (20:50)
[2019-02-28] MEDS: PANTOPRAZOLE 20 MG TABLET PO (20:51)
[2019-02-28] MEDS: LATANOPROST 0.005% OPHTH 2.5 ML 1 DROPS EYE-BOTH (20:52)
--- NOTE | 2019-02-28 21:03 | PC.NURSE ---
Addendum entered by Elana Reza R.N. 02/28/19 22:22: Decreased O2 from 2L to 1l via NC, O2 sats 92-94%. Original Note: Yessenia shift note: Due to increased mental confusion by this RN and urinary frequency/incontinence in comparison to yesterday, call was placed to Dr. Zabala, order obtained for Urinalysis.
[2019-02-28 21:08] LABS: Granular Casts Urine 0-1/LPF; Hyaline Casts Urine 0-1/LPF; RBC Urine 0-1/HPF (0-5/HPF); Squamous Epithelial Cell Urine 0-1 /HPF (0-5/HPF); WBC Urine 0-1/HPF (0-5/HPF)
[2019-02-28 21:09] LABS: Culture Indicated Urine Cult Not Indicated
[2019-03-01 03:17] VITALS: BP 151/86; PULSE 76; RESP 19; TEMP 36.5; O2SAT 96
[2019-03-01] MEDS: OXYCODONE IR 5 MG TABLET PO (03:22)
[2019-03-01 07:25] VITALS: BP 154/79; PULSE 83; RESP 22; TEMP 36.6; O2SAT 92
--- NOTE | 2019-03-01 09:30 | PT.IPTN ---
Current Diagnoses Unilateral primary osteoarthritis, right knee (02/26/19) Surgery Performed Operation Date: 02/26/19 10:45 Actual Procedures p Total Knee Arthroplasty(Right) - Milad Orellana MD Physical Therapy Treatment Note M2 PT-IP Current Condition Start: 02/26/19 14:03 Freq: NEEDED Status: Active Protocol: Document 02/26/19 16:27 AW (Rec: 02/26/19 16:45 AW [id number]) Physical Therapy Current Condition Current Condition Evaluation Date 02/26/19 Treatment Diagnosis s/p R TKA, impaired balance, transfers, gait Weight Bearing Status Weight Bearing Status Weight Bear as Tolerated M3 PT-IP Subjective Start: 02/26/19 14:03 Freq: NEEDED Status: Active Protocol: Document 03/01/19 09:30 GGD (Rec: 03/01/19 11:56 GGD [email or web address]) Subjective Physical Therapy Visit Type Type Treatment Note Visit Start Time 09:27 Visit Stop Time 09:30 Total Visit Minutes 23 Number of SHEEP FARMER Visits 4 Physical Therapy Visit Comments Patient Comments Pt states he doing a little better. M4 PT-IP Mobility and Gait Start: 02/26/19 14:03 Freq: NEEDED Status: Active Protocol: Document 03/01/19 09:30 GGD (Rec: 03/01/19 11:56 GGD [email or web address]) PT-Transfer Assessment Sit to and From Stand Sit to and from Stand Moderate Assistance Equipment Transfer Assistive Device Gait Belt,Front Wheeled Walker Orthotic/Prosthetic Devices or Brace: No Transfers Transfer Destination Chair Transfer Ability Level of Assist Minimal Assistance Gait Assessment Gait Gait Assistance Required: Contact Guard Assist,1 Person Assist Distance (Feet) 15 Able to Maintain Weight Bearing Status Yes During Gait Assistive Devices Assistive Device Gait Belt,Front Wheeled Walker Orthotic/Prosthetic Devices or Brace: No Gait Deviations General Gait Pattern Antalgic,Decreased Stride Length,Decreased Feet Clearance,Flexed Trunk,Lateral Trunk Lean Factors Limiting Gait Function Factors Limiting Gait Function Decreased Activity Tolerance, Decreased Strength,Difficulty Following Directions,Limited Range of Motion,Pain,Poor Balance,Poor Safety Awareness M5 PT-IP Objective Assessments Start: 02/26/19 14:03 Freq: NEEDED Status: Active Protocol: Document 02/26/19 16:27 AW (Rec: 02/26/19 16:45 AW [id number]) Orientation Orientation/Cognition Level of Alertness Confusional State Orientation Name,Place,Situation Language Function Ability Hard of Hearing Safety Awareness Decreased Safety Awareness Memory Description Short Term Impaired Comments Pt disoriented to month and year. Gross Range of Motion Upper Extremity ROM Assessment Within Functional Limits Impairments History of bilateral TSA Lower Extremity ROM Assessment Right Impaired Strength Upper Extremity Strength Assessment Within Functional Limits Lower Extremity Strength Assessment Right Impaired Coordination Assessment Gross Coordination Gross Coordination WNL Sensation Assessment Sensation Gross Sensation WNL Muscle Tone Muscle Tone WNL Yes M6 PT-IP Treatment Start: 02/26/19 14:03 Freq: NEEDED Status: Active Protocol: Document 03/01/19 09:30 GGD (Rec: 03/01/19 11:56 GGD [email or web address]) Physical Therapy Treatment Exercises Exercises Ankle Pumps,Quad Sets,Heel Slides,Seated Knee Flexion/ Extension M7 PT-IP Assessment and Plan Start: 02/26/19 14:03 Freq: NEEDED Status: Active Protocol: Document 03/01/19 09:30 GGD (Rec: 03/01/19 11:56 GGD [email or web address]) PT Summary Assessment and Plan Summary Assessment Summary Pt needed less cues with mobility. He was able to progress gait distance. He did have less pain overall. Frequency of Treatment Frequency Of Treatment Twice a Day Treatment Plan Physical Therapy Treatment Plan Bed Mobility Training,Transfer Training,Gait Training, Therapeutic Exercise,Balance Retraining,Post Op Education, Discharge Planning,Hot or Cold Pack,Neuromuscular Re-ed, Coordination Retraining,Manual Therapy Recommendations To Nursing Amount of Assist Needed 1 Person Assist Discharge Recommendations PT Discharge Recommendations SNF Rehab
[2019-03-01] MEDS: TIMOLOL 0.25% OPHTH 1 DROPS EYE-BOTH (09:47)
[2019-03-01] MEDS: DOCUSATE 100 MG CAPSULE PO (09:48)
[2019-03-01] MEDS: CLOPIDOGREL 75 MG TABLET PO (09:48)
[2019-03-01] MEDS: ACETAMINOPHEN 325 MG TABLET 975 MG PO (09:48)
[2019-03-01] MEDS: ASPIRIN EC 81 MG TABLET PO (09:48)
[2019-03-01] MEDS: SODIUM CHLORIDE 0.9% FLUSH 10 ML IV (09:49)
[2019-03-01] MEDS: MELOXICAM 7.5 MG TABLET 15 MG PO (09:54)
--- NOTE | 2019-03-01 11:49 | PM.DS.1 ---
History of Present Illness History of Present Illness Date Patient Seen: 03/01/19 Time Patient Seen: 11:49 Chief complaint: [address] Total Knee Arthroplasty/Right Narrative: Please see HPI previously recorded in chart. Discharge Providers Provider Date of admission: 02/26/19 08:31 Discharge Date: 03/01/19 Primary care physician: Robin Bonilla MD Consults: 02/26/19 13:47 Consult to Discharge Planning Routine Comment: Consult to Physical Therapy Evaluate & Treat Comment: Physician Instructions: postop TKA protocol Discharge provider: Maria De Jesus Reyes PA-C Summary Hospital Course Discharge Diagnosis: s/p right total knee arthroplasty Hospital Course: The patient has had progressively worsening right knee pain with radiographic changes consistent with arthritis. Non-operative management has failed and the patient has requested total knee replacement. The risks, benefits and alternatives to surgery were discussed with the patient prior to proceeding. Risks discussed included, but were not limited to, failure to relieve pain, stiffness, infection, nerve damage, deep venous thrombosis, pulmonary embolism, stroke, coma, heart attack, permanent paralysis and , as well as the potential need for eventual revision of the prosthetic. After obtaining informed consent he was taken to the operating room where he underwent right total knee arthroplasty with Dr. Orellana which he tolerated well without complications. Since then his post operative progress has been hampered by acute post surgical delirium/confusion. He has worked with physical therapy but has been slow to mobilize due to pain control and confusion. Oxycodone controls his pain well but may be contributing to confusion so this has been reduced. Otherwise he has been voiding appropriately and tolerating a diet. He is medically stable for discharge to SNF at this time. Status at Discharge Cognitive/behavioral status at discharge: confused Functional status at discharge: uses cane/walker Overall status at discharge: patient is progressing back to baseline Exam Vital Signs (past 8 hours): - 03/01/19 07:25 Temperature 97.9 F Pulse Rate 83 Respiratory Rate 22 Blood Pressure 154/79 H Pulse Oximetry 92 Fraction of Inspired Oxygen 28 Oxygen Delivery Method Nasal Cannula Oxygen Flow Rate 0 Narrative Exam Narrative: 78 year old male resting comfortably in bed. Alert but confused. Oriented to month but not day. In no acute distress. Dressing in place is CDI. Patient able to flex/extend the ankle. Calves soft, compressible. Pulses symmetric. Objective Labs Result Diagrams: 02/27/19 06:16 Labs: Laboratory Results - last 24 hr 02/28/19 20:30 Urine Color Yellow Urine Appearance Clear Urine pH 6.5 Ur Specific [place] 1.010 Urine Protein 1+ H Urine Glucose (UA) Trace H Urine Ketones Negative Urine Occult Blood Trace-intact Urine Nitrate Negative Urine Bilirubin Negative Urine Urobilinogen 4.0 H Ur Leukocyte Esterase Negative Urine RBC 0-1/hpf Urine WBC 0-1/hpf Ur Squamous Epith Cells 0-1 /hpf Urine Bacteria None seen Hyaline Casts 0-1/lpf Granular Casts 0-1/lpf Ur Culture Indicated? Cult not indicated Discharge Plan Discharge Plan Patient Disposition: SNF Transfer to: [facility], [facility] Consult as needed: Dental, Hearing, Mental health, Podiatry and Vision Discharge Med Rec/Prescriptions Prescriptions: New acetaminophen 325 mg Tablet 975 mg PO TID Qty: 40 RF: 0 meloxicam [Mobic] 7.5 mg Tablet 15 mg PO 0800 Qty: 30 RF: 0 docusate sodium [DOK] 100 mg Capsule 100 mg PO BID Qty: 40 RF: 0 oxycodone 5 mg Tablet 5 mg PO Q3HR PRN (Reason: Pain, Moderate (4-6)) Qty: 40 RF: 0 Continued latanoprost 0.005 % drops 1 drp EYE-BOTH HS Qty: 0 RF: 0 timolol maleate [Timoptic] 0.25 % drops 1 drp EYE-BOTH QAM Qty: 0 RF: 0 clopidogrel [Plavix] 75 MG tablet 75 mg PO QDAY Qty: 30 RF: 0 aspirin 81 mg Tablet,Delayed Release (Dr/Ec) 81 mg PO DAILY RF: 0 diphenhydramine-acetaminophen [Acetaminophen PM] 25-500 mg Tablet 1 tab PO BEDTIME RF: 0 losartan 100 mg Tablet 100 mg PO BEDTIME RF: 0 rosuvastatin 40 mg Tablet 40 mg PO BEDTIME RF: 0 omeprazole 20 mg Capsule,Delayed Release(Dr/Ec) 20 mg PO BEDTIME RF: 0 Follow up/Referrals: Robin Bonilla MD [Primary Care Provider] - Milad Orellana MD [Physician] - Discharge Health Status Brief summary of current health status: Patient with PMH of CVA, TIA, CKD, HLD, HTN, glaucoma in his usual state of health. He is POD#3 s/p right TKA. Experiencing post operative delirium which is gradually improving. Precautions: [place] Provider Discharge Instructions Diet: Diet as Tolerated Liquid consistency: Normal/Thin Food texture: Regular Activity: Weight bear as tolerated. Cold/Heat Therapy: Ice packs as needed. Skin/Wound/Dressing Care Report to your healthcare provider any signs of infection, such as:: chills, fever, night sweats, unusual drainage and unusual redness Dressing: Please leave Aquacel dressing in place. If dressing becomes saturated please call the office. [facility] Reason for rehabilitation: Post-operative therapy Rehab type: Physical therapy and Occupational therapy Visit Report/Discharge Packet Instructions: DI for Knee Replacement Stand Alone Forms: Surgery Discharge Discharge Data Primary Care Provider: Robin Bonilla
[2019-03-01 12:05] VITALS: BP 146/77; PULSE 72; RESP 20; TEMP 36.9; O2SAT 94
--- NOTE | 2019-03-01 14:50 | CM.DPNOTE ---
DC Note: DC order in and pt/spouse remain agreeable to DC to [facility] today. Gilda, [employer], assisting w/coordination of this DC today; arranging cabulance p/u, faxing completed and signed DC ppk/ [facility], alerting RN to p/u time and any changes. P: DC to [facility] via cabulance today. JOSE
--- NOTE | 2019-03-01 16:20 | PC.NURSE ---
Pt discharged to staff of [facility] with all belongings and discharge packet. He left by wheelchair in stable condition.
== END 2019-03-01 15:55 | DRG 469 ==
PROVIDERS: Orthopaedic Surgery; Admitting Provider Orthopaedic Surgery; Family Provider Internal Medicine; PCP Internal Medicine; Visit Provider Orthopaedic Surgery
PROC: 0SRC0JZ Replacement of Right Knee Joint with Synthetic Substitute, Open Approach (ICD-10-PCS; CPT 27447; principal; 2019-02-26 10:45)
DX: M17.11 Unilateral primary osteoarthritis, right knee (principal); G92 Toxic encephalopathy; I69.354 Hemiplegia and hemiparesis following cerebral infarction affecting left non-dominant side; Z96.652 Presence of left artificial knee joint; I10 Essential (primary) hypertension; E78.5 Hyperlipidemia, unspecified; K21.9 Gastro-esophageal reflux disease without esophagitis; T40.605A Adverse effect of unspecified narcotics, initial encounter; Y92.239 Unspecified place in hospital as the place of occurrence of the external cause
CPT/HCPCS: 36415; 73560; 81001; 85014; 85018; 94760; 94762; 97110; 97116; 97161; C1776; C9290; J0690; J1100; J2250; J2270; J2274; J2405; J2704; J3010